=== PATIENT | male | born 1990 | race Caucasian/White ===

== ENCOUNTER 2019-03-01 22:51 | Emergency (ER) | payer SELFPAY ==
[2019-03-02] MEDS ORDERED: Ketorolac Tromethamine 30 MG/ML VIAL ONE (00:57)
== END 2019-03-02 01:48 | disposition home or self-care (01) ==
LOC: ERS 22:51
DX: M54.5 Low back pain (principal); Z79.899 Other long term (current) drug therapy
CPT/HCPCS: 96372; 99283; J1885

== ENCOUNTER 2020-09-26 02:22 | Emergency (ER) | payer SELFPAY ==
[2020-09-26] MEDS ORDERED: Lidocaine 1% w/Epinephrine 1:100K 20 ML VIAL ONE (02:40)
[2020-09-26] MEDS ORDERED: Boostrix 0.5 ML (Tdap) VIAL ONE (02:40)
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
== END 2020-09-26 04:24 | disposition home or self-care (01) ==
LOC: ERS 02:22
DX: S01.01XA Laceration without foreign body of scalp, initial encounter (principal); F10.129 Alcohol abuse with intoxication, unspecified; Y04.8XXA Assault by other bodily force, initial encounter; F17.210 Nicotine dependence, cigarettes, uncomplicated
CPT/HCPCS: 12002; 70450; 90471; 90715

== ENCOUNTER 2024-05-29 17:52 | Emergency (ER) | payer OTHER, SELFPAY ==
[2024-05-29] MEDS ORDERED: Ketorolac Tromethamine 30 MG (1 mL) VIAL ONE (20:09)
[2024-05-29] MEDS ORDERED: HYDROcodone/Acetaminophen 5/325 mg Tablet ONE (20:09)
== END 2024-05-29 21:09 | disposition home or self-care (01) ==
LOC: ERS 17:52
DX: S92.001A Unspecified fracture of right calcaneus, initial encounter for closed fracture (principal); F17.210 Nicotine dependence, cigarettes, uncomplicated; F17.220 Nicotine dependence, chewing tobacco, uncomplicated; X50.1XXA Overexertion from prolonged static or awkward postures, initial encounter; Y93.39 Activity, other involving climbing, rappelling and jumping off
CPT/HCPCS: 29515; 72100; 96372; J1885